=== PATIENT | female | born 1945 | race Two or more races ===

== ENCOUNTER 2017-09-14 15:22 | Outpatient (CLI) | payer OTHER ==
[~2017-09-14 15:22] MED LIST: AMOXICILLIN500 MG PO; LEXAPRO20 MG; NORFLEX100 MG; OMEPRAZOLE20 MG; SYNTHROID88 MCG PO; TYLENOL EXTRA500 MG PO; ZANTAC300 MG
== END 2017-09-14 16:00 | disposition home or self-care (01) ==
LOC: NUCLEAR 15:22
DX: M81.0 Age-related osteoporosis without current pathological fracture (principal)

== ENCOUNTER 2017-09-15 08:35 | Outpatient (CLI) | payer OTHER | END 2017-09-15 09:08 | disposition home or self-care (01) | LOC: TOM 08:35 | DX: K59.09 Other constipation (principal) ==

== ENCOUNTER 2018-03-14 16:08 | Emergency (ER) | payer OTHER ==
[~2018-03-14] VITALS: Ht 154.9 cm; Wt 76.2 kg
== END 2018-03-14 19:23 | disposition home or self-care (01) ==
LOC: ER 16:08
DX: M62.830 Muscle spasm of back (principal); M54.2 Cervicalgia

== ENCOUNTER 2018-11-30 11:37 | Outpatient (CLI) | payer OTHER | END 2018-11-30 13:26 | disposition home or self-care (01) | LOC: MAMO-SONO 11:37 | DX: Z12.31 Encounter for screening mammogram for malignant neoplasm of breast (principal); Z87.898 Personal history of other specified conditions; N60.11 Diffuse cystic mastopathy of right breast; N60.12 Diffuse cystic mastopathy of left breast; N63.10 Unspecified lump in the right breast, unspecified quadrant; N63.20 Unspecified lump in the left breast, unspecified quadrant ==

== ENCOUNTER 2019-03-15 18:10 | Emergency (ER) | payer OTHER ==
[~2019-03-15] VITALS: Ht 160 cm; Wt 58.1 kg
[2019-03-15] MEDS ORDERED: SKELAXIN800 MG PO (19:53)
[2019-03-15] MEDS ORDERED: KETO10TA2 PO (19:53)
== END 2019-03-15 20:20 | disposition home or self-care (01) ==
LOC: ER 18:10
DX: S43.492A Other sprain of left shoulder joint, initial encounter (principal); W18.39XA Other fall on same level, initial encounter; Y93.89 Activity, other specified; Y92.098 Other place in other non-institutional residence as the place of occurrence of the external cause; Y99.8 Other external cause status

== ENCOUNTER 2019-06-21 15:28 | Outpatient (CLI) | payer OTHER ==
[~2019-06-21 15:28] MED LIST changes: +KETO10TA2 PO; +SKELAXIN800 MG PO
== END 2019-06-21 15:37 | disposition home or self-care (01) ==
LOC: RAD 15:28
DX: J44.9 Chronic obstructive pulmonary disease, unspecified (principal); M12.811 Other specific arthropathies, not elsewhere classified, right shoulder; M12.812 Other specific arthropathies, not elsewhere classified, left shoulder

== ENCOUNTER 2019-06-24 10:48 | Emergency (ER) | payer OTHER ==
[~2019-06-24] VITALS: Ht 160 cm; Wt 76.2 kg
[2019-06-24] MEDS ORDERED: LOSARTAN-HCTZ1 EACH (11:34)
[2019-06-24] MEDS ORDERED: LEVOTHYROXINE SO1 GM (11:35)
[2019-06-24] MEDS ORDERED: WELLBUTRIN XL300 MG PO (11:35)
[2019-06-24] MEDS ORDERED: FLUOXETINE HCL40 MG (11:35)
== END 2019-06-24 15:21 | disposition home or self-care (01) ==
LOC: ER 10:48
DX: K58.8 Other irritable bowel syndrome (principal)

== ENCOUNTER 2019-10-17 15:48 | Outpatient (CLI) | payer OTHER ==
[~2019-10-17 15:48] MED LIST changes: +FLUOXETINE HCL40 MG; +LEVOTHYROXINE SO1 GM; +LOSARTAN-HCTZ1 EACH; +WELLBUTRIN XL300 MG PO
== END 2019-10-17 15:52 | disposition home or self-care (01) ==
LOC: RAD 15:48
DX: M12.811 Other specific arthropathies, not elsewhere classified, right shoulder (principal); M12.812 Other specific arthropathies, not elsewhere classified, left shoulder

== ENCOUNTER 2019-10-19 13:19 | Emergency (ER) | payer OTHER ==
[~2019-10-19] VITALS: Ht 162.6 cm; Wt 72.6 kg
[2019-10-19] MEDS ORDERED: DICLOFENAC SODI75 MG PO (15:04)
== END 2019-10-19 15:29 | disposition home or self-care (01) ==
LOC: ER 13:19
DX: M75.51 Bursitis of right shoulder (principal)

== ENCOUNTER 2019-11-19 15:00 | Outpatient (CLI) | payer OTHER ==
[~2019-11-19 15:00] MED LIST changes: +DICLOFENAC SODI75 MG PO
== END 2019-11-19 15:07 | disposition home or self-care (01) ==
LOC: RAD 15:00
DX: J44.9 Chronic obstructive pulmonary disease, unspecified (principal)

== ENCOUNTER 2020-04-02 11:18 | Emergency (ER) | payer OTHER ==
[~2020-04-02] VITALS: Ht 160 cm; Wt 76.2 kg
[2020-04-02] MEDS ORDERED: LEVO-T25 MCG PO (11:40)
[2020-04-02] MEDS ORDERED: LORAZEPAM1 MG (11:41)
[2020-04-02] MEDS ORDERED: NORFLEX100MG PO (14:24)
[2020-04-02] MEDS ORDERED: KETO10TA2 PO (14:24)
== END 2020-04-02 14:30 | disposition home or self-care (01) ==
LOC: ER 11:18
DX: G89.11 Acute pain due to trauma (principal); M25.511 Pain in right shoulder; M54.5 Low back pain; M54.2 Cervicalgia

== ENCOUNTER 2020-06-11 09:28 | Outpatient (CLI) | payer OTHER ==
[~2020-06-11 09:28] MED LIST changes: +DICLOFENAC POTA50 MG PO; +LEVO-T25 MCG PO; +LORAZEPAM1 MG; +NORFLEX100MG PO; +ZANAFLEX2 MG PO
== END 2020-06-11 09:37 | disposition home or self-care (01) ==
LOC: MAMO-SONO 09:28
PROVIDERS: ATTEND Internal Medicine Cardiovascular Disease
DX: Z12.31 Encounter for screening mammogram for malignant neoplasm of breast (principal); N64.59 Other signs and symptoms in breast

== ENCOUNTER 2020-10-21 12:24 | Outpatient (CLI) | payer OTHER ==
[~2020-10-21 12:24] MED LIST changes: +DICLOFENAC SOD100 G1 TOP
== END 2020-10-21 12:34 | disposition home or self-care (01) ==
LOC: RAD 12:24
PROVIDERS: ATTEND Physical Medicine & Rehabilitation
DX: M19.011 Primary osteoarthritis, right shoulder (principal); M43.24 Fusion of spine, thoracic region; M54.2 Cervicalgia; M75.81 Other shoulder lesions, right shoulder

== ENCOUNTER 2020-12-24 14:14 | Outpatient (CLI) | payer OTHER | END 2020-12-24 14:46 | disposition home or self-care (01) | LOC: SONOGRAMA 14:14 | PROVIDERS: ATTEND Physical Medicine & Rehabilitation | DX: M75.81 Other shoulder lesions, right shoulder (principal) ==

== ENCOUNTER 2021-04-18 21:35 | Emergency (ER) | payer OTHER ==
[~2021-04-18] VITALS: Ht 160 cm; Wt 72.6 kg
== END 2021-04-18 23:32 | disposition home or self-care (01) ==
LOC: ER 21:35
DX: S91.352A Open bite, left foot, initial encounter (principal); W55.01XA Bitten by cat, initial encounter; Y93.89 Activity, other specified; Y92.89 Other specified places as the place of occurrence of the external cause; Y99.8 Other external cause status

== ENCOUNTER 2021-05-01 12:25 | Outpatient (CLI) | payer OTHER | END 2021-05-01 12:38 | disposition home or self-care (01) | LOC: MRI 12:25 | PROVIDERS: ATTEND Internal Medicine Cardiovascular Disease | DX: M54.2 Cervicalgia (principal); M12.89 Other specific arthropathies, not elsewhere classified, multiple sites | CPT/HCPCS: 72141 ==

== ENCOUNTER 2021-06-10 17:23 | Emergency (ER) | payer OTHER ==
[~2021-06-10] VITALS: Ht 160 cm; Wt 68.0 kg
[2021-06-10] MEDS ORDERED: XOPENEX0.63 MG/3 IH (19:24)
[2021-06-10] MEDS ORDERED: TUSNEL LIQUID178 ML PO (19:24)
[2021-06-10] MEDS ORDERED: ZITHROMAX500 MG PO (19:24)
== END 2021-06-10 19:43 | disposition home or self-care (01) ==
LOC: ER 17:23
DX: R05 Cough (principal); Z11.52 Encounter for screening for COVID-19

== ENCOUNTER 2021-07-16 13:38 | Outpatient (CLI) | payer OTHER ==
[~2021-07-16 13:38] MED LIST changes: +TUSNEL LIQUID178 ML PO; +XOPENEX0.63 MG/3 IH; +ZITHROMAX500 MG PO
== END 2021-07-16 13:45 | disposition home or self-care (01) ==
LOC: MAMO-SONO 13:38
PROVIDERS: ATTEND Internal Medicine Cardiovascular Disease
DX: N60.11 Diffuse cystic mastopathy of right breast (principal); N60.12 Diffuse cystic mastopathy of left breast; Z12.31 Encounter for screening mammogram for malignant neoplasm of breast; N64.89 Other specified disorders of breast

== ENCOUNTER 2021-10-06 17:36 | Emergency (ER) | payer OTHER ==
[~2021-10-06] VITALS: Ht 160 cm; Wt 73.5 kg
== END 2021-10-06 22:08 | disposition home or self-care (01) ==
LOC: ER 17:36
DX: S00.93XA Contusion of unspecified part of head, initial encounter (principal); M54.2 Cervicalgia; W18.30XA Fall on same level, unspecified, initial encounter; Y93.9 Activity, unspecified; Y92.019 Unspecified place in single-family (private) house as the place of occurrence of the external cause; Y99.9 Unspecified external cause status

== ENCOUNTER 2021-11-06 14:24 | Outpatient (CLI) | payer OTHER | END 2021-11-06 14:29 | disposition home or self-care (01) | LOC: RAD 14:24 | PROVIDERS: ATTEND Internal Medicine Cardiovascular Disease | DX: M12.9 Arthropathy, unspecified (principal) ==

== ENCOUNTER 2022-02-04 14:41 | Outpatient (CLI) | payer OTHER | END 2022-02-04 14:57 | disposition home or self-care (01) | LOC: RAD 14:41 | PROVIDERS: ATTEND Orthopaedic Surgery | DX: M25.511 Pain in right shoulder (principal) ==

== ENCOUNTER → 2022-02-17 | Outpatient (CLI) | payer OTHER | END | disposition home or self-care (01) | LOC: NUCLEAR 02-11 13:00 | PROVIDERS: ATTEND Orthopaedic Surgery | DX: M81.0 Age-related osteoporosis without current pathological fracture (principal) ==

== ENCOUNTER → 2022-03-23 | Emergency (ER) | payer OTHER ==
[~2022-03-23] VITALS: Ht 160 cm; Wt 73.5 kg
== END | disposition home or self-care (01) ==
LOC: ER 14:28
DX: M25.511 Pain in right shoulder (principal); E07.9 Disorder of thyroid, unspecified; I10 Essential (primary) hypertension

== ENCOUNTER 2022-03-26 09:36 | Outpatient (CLI) | payer OTHER | END 2022-03-26 10:00 | disposition home or self-care (01) | LOC: SONOGRAMA 09:36 | PROVIDERS: ATTEND Orthopaedic Surgery | DX: M25.511 Pain in right shoulder (principal) ==

== ENCOUNTER 2022-09-28 15:54 | Emergency (ER) | payer OTHER ==
[~2022-09-28] VITALS: Ht 147.3 cm; Wt 69.4 kg
[2022-09-28] MEDS ORDERED: AVAPRO75 MG (16:00)
== END 2022-09-28 20:03 | disposition home or self-care (01) ==
LOC: ER 15:54
DX: J10.1 Influenza due to other identified influenza virus with other respiratory manifestations (principal); Z20.822 Contact with and (suspected) exposure to COVID-19

== ENCOUNTER → 2022-10-05 16:42 | Outpatient (CLI) | payer OTHER ==
[~2022-10-05 16:42] MED LIST changes: +AVAPRO75 MG
== END | disposition home or self-care (01) ==
LOC: LAB 16:42
PROVIDERS: ATTEND Orthopaedic Surgery
DX: E55.9 Vitamin D deficiency, unspecified (principal); M85.9 Disorder of bone density and structure, unspecified; E56.1 Deficiency of vitamin K

== ENCOUNTER → 2023-04-29 | Outpatient (CLI) | payer OTHER | END | disposition home or self-care (01) | LOC: RAD 09:51 | PROVIDERS: ATTEND Internal Medicine Cardiovascular Disease | DX: M46.48 Discitis, unspecified, sacral and sacrococcygeal region (principal); R07.9 Chest pain, unspecified ==

== ENCOUNTER 2023-06-16 14:17 | Outpatient (CLI) | payer OTHER | END 2023-06-16 14:34 | disposition home or self-care (01) | LOC: TOM 14:17 | PROVIDERS: ATTEND Internal Medicine Cardiovascular Disease | DX: R51.9 Headache, unspecified (principal); G30.9 Alzheimer's disease, unspecified ==

== ENCOUNTER → 2024-05-21 | Outpatient (CLI) | payer OTHER | END | disposition home or self-care (01) | LOC: SONOGRAMA 14:31 | PROVIDERS: ATTEND Internal Medicine Cardiovascular Disease | DX: M12.9 Arthropathy, unspecified (principal) ==

== ENCOUNTER 2025-01-25 07:23 | Outpatient (CLI) | payer OTHER | END 2025-01-25 07:27 | disposition home or self-care (01) | LOC: TOM 07:23 | PROVIDERS: ATTEND Psychiatry & Neurology Clinical Neurophysiology | DX: F03.90 Unspecified dementia, unspecified severity, without behavioral disturbance, psychotic disturbance, mood disturbance, and anxiety (principal) ==

== ENCOUNTER 2025-03-20 08:52 | Outpatient (CLI) | payer OTHER | END 2025-03-20 09:11 | disposition home or self-care (01) | LOC: NUCLEAR 08:52 | PROVIDERS: ATTEND Psychiatry & Neurology Clinical Neurophysiology | DX: F03.90 Unspecified dementia, unspecified severity, without behavioral disturbance, psychotic disturbance, mood disturbance, and anxiety (principal) | CPT/HCPCS: 78803; A9557 ==